=== PATIENT | male | born 1980 | race Two or more races ===

== ENCOUNTER → 2025-03-04 | Outpatient (CLI) | payer OTHER, SELFPAY ==
--- NOTE | 2025-03-04 16:05 | XR_ITS ---
Examination: Abdomen AP single view Technique: AP portable supine abdomen, single view Exam date and time: March 04, 2025, 1622 hours INDICATIONS: Abdominal cramping beginning 10 days ago. FINDINGS: Mild stool throughout the colon No obstruction No free air. No abnormal calcific densities. IMPRESSION: Nonobstructive bowel gas pattern
== END | disposition home or self-care (01) ==
LOC: CDIM 15:48
PROVIDERS: Referring Provider Physician Assistant; Visit Provider Physician Assistant
DX: R10.9 Unspecified abdominal pain (principal)
CPT/HCPCS: 74018